=== PATIENT | male | born 1985 | race Caucasian/White ===

== ENCOUNTER 2016-11-14 10:05 | Emergency (ER) | payer OTHER ==
[2016-11-14 11:14] VITALS: RESP 18
[2016-11-14] MEDS ORDERED: SODIUM CHLORIDE 0.9% 1,000 ML IV STA (11:33)
[2016-11-14] MEDS ORDERED: METOCLOPRAMIDE 5 MG/ML 2 ML VIAL IVP STA (11:33)
[2016-11-14] MEDS ORDERED: KETOROLAC 30 MG/ML 1 ML VIAL IVP STA (11:33)
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
[2016-11-14 12:10] LABS: Basophils % (A) 0 %; CH 33.4; CHCM 34.8; Eosinophils # (A) 0.2 k/uL (0-0.7); Eosinophils % (A) 2 %; HCT 47.6 % (39.0-53.0); HDW 2.42; HGB 16.3 gm/dL (13.0-17.5); Luc # (Auto) 0.25; Luc % (Auto) 3; Lymphocytes # (A) 2.4 k/uL (1.0-4.8); Lymphocytes % (A) 27 %; MCH 32.9 pg (25.0-35.0); MCHC 34.2 g/dL (31.0-37.0); MCV 96.3 fL (80.0-100.0); Mean Platelet Volume 8.7; Monocytes # (A) 0.4 k/uL (0-1.0); Monocytes % (A) 5 %; Neutrophils # (A) 5.7 k/uL (1.3-7.7); Neutrophils % (A) 63 %; RBC 4.94 m/uL (4.30-5.90); RDW 11.9 % (11.5-15.5)
[2016-11-14 12:13] LABS: Appearance,Urine Clear (Clear); Bilirubin,Urine Negative (Negative); Glucose,Urine (UA) Negative (Negative); Ketones,Urine Trace (Negative); Leukocyte Esterase,Urine Trace (Negative); Mucus,Urine Rare /hpf; Nitrite,Urine Negative (Negative); Particle Count 3020; Protein,Urine Trace (Negative); RBC,Urine <1 /hpf (0-5); Specific Gravity,Urine 1.023 (1.001-1.035); Squamous Epithelial Cell,Urine <1 /hpf (0-4); UA Billing (MACRO vs. MICRO) MICRO; WBC,Urine 7 /hpf (0-5)
[2016-11-14 12:23] LABS: ALT 239 U/L (21-72); AST 119 U/L (17-59); Alkaline Phosphatase 99 U/L (38-126); Amylase 58 U/L (30-110); Anion Gap 15 mmol/L; Blood Urea Nitrogen 16 mg/dL (9-20); Calcium 10.3 mg/dL (8.4-10.2); Carbon Dioxide 26 mmol/L (22-30); Chloride 101 mmol/L (98-107); Glucose 106 mg/dL (74-99); Non-African American GFR(MDRD) >60 (>60 ml/min/1.73 sqM); Potassium 4.3 mmol/L (3.5-5.1); Sodium 142 mmol/L (137-145); Total Protein 8.5 g/dL (6.3-8.2)
--- NOTE | 2016-11-14 12:25 | XR ---
EXAMINATION TYPE: XR chest 2V DATE OF EXAM: 11/14/2016 12:17 PM COMPARISON: NONE HISTORY: Abdominal pain TECHNIQUE: Frontal and lateral views of the chest are obtained. FINDINGS: There is no focal air space opacity, pleural effusion, or pneumothorax seen. The cardiac silhouette size is within normal limits. Distal left clavicle shows a fracture with displacement. No apparent involvement of the acromioclavicular joint. Intact. IMPRESSION: No acute cardiopulmonary process. Distal left clavicular fracture.
--- NOTE | 2016-11-14 12:27 | XR ---
Abdomen HISTORY: Right-sided abdominal pain Frontal view of the abdomen submitted on 2 images and correlated to prior abdomen 07 November 2016 The lung bases are clear. There is a scoliotic curvature present. Air-fluid levels are present withou t bowel distention. No pneumoperitoneum. IMPRESSION: Findings could be due to enteritis or ileus. Follow-up as indicated.
[2016-11-14 12:41] LABS: INR 1.1 (<1.1); Partial Thromboplastin Time 25.3 sec (22.0-30.0); Prothrombin Time 10.7 sec (9.0-12.0)
[2016-11-14] MEDS ORDERED: FAMOTIDINE 20 MG/2 ML VIAL IV STA (13:01)
[2016-11-14] MEDS ORDERED: RX INFO: IV CONTRAST WAS GIVEN 1 EACH MISC MISCELLANE PRN (13:01)
[2016-11-14] MEDS ORDERED: methylPREDNISolone SOD SUCCI 125 MG/2 ML VIAL IV STA (13:01)
[2016-11-14] MEDS ORDERED: diphenhydrAMINE 50 MG/ML 1 ML VIAL IVP STA (13:01)
[2016-11-14] MEDS ORDERED: HYDROmorphone 1 MG/ML 1 ML SYRINGE IVP STA (14:06)
[2016-11-14 14:28] VITALS: BP 120/70; PULSE 76; TEMP 97.5
--- NOTE | 2016-11-14 14:45 | CT ---
EXAMINATION TYPE: CT abdomen pelvis w con DATE OF EXAM: 11/14/2016 2:24 PM COMPARISON: NONE HISTORY: 31-year-old male with left sided abdominal pain TECHNIQUE: Contiguous axial scanning of the abdomen and pelvis following administration of 100 ml Omn ipaque 300 IV contrast. Delayed images through the kidneys and coronal/sagittal reconstructions perf ormed. CT DLP: 1553 mGycm Automated exposure control for dose reduction was used. FINDINGS: Heart is normal size without pericardial effusion. Prominent dependent atelectasis along the posterio r lower lungs without pleural effusion. No focal liver lesion or biliary ductal dilatation. Portal venous system is patent. Gallbladder, adrenal glands, kidneys, spleen, and pancreas appear within normal limits. No dilated small bowel, free fluid, or free air. Scattered borderline to mildly enlarged left mesenteric lymph nodes measure up to 7 mm, probably reac tive/post inflammatory. Normal appendix. No pericolonic inflammatory change. There is underdistention of the bladder but circumferential bladder wall thickening. Rectum appears n ormal. No abnormal fluid collection in the pelvis or pelvic lymphadenopathy seen. Bones: No osseous destructive process. There is a subacute to chronic fracture of the left lateral si xth rib with both endosteal and periosteal callus. IMPRESSION: 1. MILD CIRCUMFERENTIAL BLADDER WALL THICKENING MAY RELATE TO UNDER DISTENTION OR CYSTITIS. CLINICALL Y CORRELATE. 2. SCATTERED BORDERLINE AND A FEW MILDLY ENLARGED MESENTERIC LYMPH NODES IN THE LEFT ABDOMEN PROBABLY REACTIVE/POST INFLAMMATORY.
== END 2016-11-14 15:27 | disposition home or self-care (01) ==
LOC: EC 10:05
DX: R10.9 Unspecified abdominal pain (principal); R11.10 Vomiting, unspecified; J45.909 Unspecified asthma, uncomplicated; G40.909 Epilepsy, unspecified, not intractable, without status epilepticus; F31.9 Bipolar disorder, unspecified; B19.20 Unspecified viral hepatitis C without hepatic coma; F17.200 Nicotine dependence, unspecified, uncomplicated; Z79.899 Other long term (current) drug therapy; Z88.0 Allergy status to penicillin; Z91.013 Allergy to seafood; Z91.018 Allergy to other foods
CPT/HCPCS: 96374; 96375 ×5; 96361 ×2; 99284; 36415; 80053; 82150; 83690; 85025; 85610; 85730; 81001; 71020; 74000; 74177; J1200; J2765; J2930; J1885; J1170; Q9967

== ENCOUNTER → 2016-12-06 | Day surgery (SDC) | payer OTHER ==
[~2016-12-06] MED LIST: LACTATED RINGERS 1,000 ML IV ONE; LIDOCAINE 1% 20 ML VIAL (10MG/ML) FOR IV START INTRADERMA ONE; LIDOCAINE 1% INJ 10MG/ML (20 ML MDV) ONE; PROPOFOL 10 MG/ML 20 ML VIAL IV ONE
[2016-12-06 09:44] VITALS: TEMP 98.5
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
--- NOTE | 2016-12-06 10:37 | P.OP ---
Date of Procedure: 12/06/16 Preoperative Diagnosis: Epigastric abdominal pain Nausea Vomiting Postoperative Diagnosis: Duodenitis Normal colon Procedure(s) Performed: EGD Colonoscopy Anesthesia: MAC Surgeon: Elias Salgado Pathology: other (Duodenum, antrum) Condition: stable Disposition: PACU Description of Procedure: PROCEDURE: The patient was placed on the endoscopy table in the lateral position. Digital rectal examination was performed which revealed no abnormalities. The prostate was symmetrical without nodules. Flexible colonoscope was then placed in the patient's anus and passed throughout the entire colon. The ileocecal valve was visualized. The cecum, ascending, transverse, descending and sigmoid colon were normal. The rectum was normal as well. There were no masses, polyps or diverticula noted in the entire colon. Next, the gastroscope placed oropharynx passed in the esophagus and into the stomach. Scope was placed through the pylorus. The first and second portion of duodenum appeared inflamed. A biopsies performed. Scope was then brought back the antrum this appeared mildly inflamed and a biopsies performed. The scope was then retroflexed and the remainder stomach appeared normal. The GE junction was at 40 cm. The distal esophagus was normal. The proximal esophagus was normal. Scope was withdrawn for patient.
[2016-12-06 10:51] VITALS: PULSE 69; RESP 18
[2016-12-06 11:03] VITALS: BP 115/70
--- NOTE | 2016-12-06 14:00 | NM ---
EXAMINATION TYPE: NM hepatobiliary w CCK DATE OF EXAM: 12/06/2016 1:43 PM COMPARISON: CT 14 November 2016 HISTORY: Epigastric pain, nausea and vomiting TECHNIQUE: After the intravenous administration of 5.46 mCi Tc 99m Mebrofenin hepatobiliary scintigra phy is performed. Immediate images post injection. FINDINGS: There is satisfactory initial accumulation of tracer by the liver. The gallbladder is visualized wit hin 12 minutes. The small bowel activity is noted within 8 minutes. At one hour CCK was administere d, patient was injected with 1.9 mcg of Kinevac, and gallbladder ejection fraction is calculated at 2 9 %, which is abnormal low. Therefore there is no scintigraphic evidence of cystic or common bile du ct obstruction to suggest acute cholecystitis or gallbladder dyskinesia. IMPRESSION: Abnormal low gallbladder ejection fraction
== END ==
LOC: ORWHC2ENDO 08:36
PROVIDERS: ATTEND Surgery
DX: K29.80 Duodenitis without bleeding (principal); K29.50 Unspecified chronic gastritis without bleeding; R93.2 Abnormal findings on diagnostic imaging of liver and biliary tract; J45.909 Unspecified asthma, uncomplicated; J44.9 Chronic obstructive pulmonary disease, unspecified; G40.909 Epilepsy, unspecified, not intractable, without status epilepticus; F90.9 Attention-deficit hyperactivity disorder, unspecified type; F41.9 Anxiety disorder, unspecified; F31.9 Bipolar disorder, unspecified; F41.0 Panic disorder [episodic paroxysmal anxiety]; F43.10 Post-traumatic stress disorder, unspecified; B19.20 Unspecified viral hepatitis C without hepatic coma; F17.200 Nicotine dependence, unspecified, uncomplicated; Z79.899 Other long term (current) drug therapy; Z88.0 Allergy status to penicillin; Z91.018 Allergy to other foods
CPT/HCPCS: 88305; 88342; 78227; 45378; 43239; A9537; J2805; J2001; J2704; 99153

== ENCOUNTER 2017-01-02 06:37 | Day surgery (SDC) | payer OTHER ==
[2017-01-01 08:42] VITALS: BMI 26.6
[~2017-01-02 06:37] MED LIST changes: +DEXAMETHASONE SOD PHOSPHATE 10 MG/ML 1 ML VIAL IV ONE; -LACTATED RINGERS 1,000 ML IV ONE; +LACTATED RINGERS 1,000 ML IV SCH; -LIDOCAINE 1% 20 ML VIAL (10MG/ML) FOR IV START INTRADERMA ONE; +LIDOCAINE 1% 20 ML VIAL (10MG/ML) FOR IV START INTRADERMA PRN; -LIDOCAINE 1% INJ 10MG/ML (20 ML MDV) ONE; +MIDAZOLAM 2 MG/2 ML VIAL IV PRN; +ONDANSETRON 4 MG/2 ML VIAL IVP ONE; -PROPOFOL 10 MG/ML 20 ML VIAL IV ONE; +SCOPOLAMINE 1.5MG/72HR PATCH TRANSDERM ONE; +ceFAZolin 2 GM in SODIUM CHLORIDE 0.9% 100 ML IVPB ONE
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
[2017-01-02] MEDS ORDERED: NEOSTIGMINE 1 MG/ML 10 ML VIAL ONE (07:57)
[2017-01-02] MEDS ORDERED: fentaNYL (PF) 50 MCG/ML 2 ML AMP ONE (07:57)
[2017-01-02] MEDS ORDERED: HYDROmorphone (PF) 1 MG/ML ONE (07:57)
[2017-01-02] MEDS ORDERED: PROPOFOL 10 MG/ML 20 ML VIAL IV ONE (07:57)
[2017-01-02] MEDS ORDERED: GLYCOPYRROLATE 0.2 MG/ML 2 ML VIAL ONE (07:57)
[2017-01-02] MEDS ORDERED: SUCCINYLCHOLINE CHLORIDE 100 MG/5 ML SYR IV ONE (07:57)
[2017-01-02] MEDS ORDERED: ROCURONIUM BROMIDE 10 MG/ML 10 ML VIAL IV ONE (07:57)
[2017-01-02] MEDS ORDERED: LIDOCAINE 1% INJ 10MG/ML (20 ML MDV) ONE (07:57)
[2017-01-02] MEDS ORDERED: BUPIVACAIN-EPI 0.25%-1:200,000 30 ML VIAL SQ ONE ×2 (08:20→08:23)
--- NOTE | 2017-01-02 08:44 | P.OP ---
Date of Procedure: 01/02/17 Preoperative Diagnosis: Cholecystitis Postoperative Diagnosis: Cholecystitis Procedure(s) Performed: Laparoscopic cholecystectomy Anesthesia: MICAH Surgeon: Elias Salgado Estimated Blood Loss (ml): 5 Pathology: other (Gallbladder) Condition: stable Disposition: PACU Description of Procedure: The patient was placed on the operating table. The patient received a general endotracheal tube anesthesia. The patients abdomen was prepped and draped in the usual sterile fashion. Through an infraumbilical stab incision, the fascia of the anterior abdominal wall was grasped with a pair of Kochers and then the Veress needle was placed in the peritoneal cavity. Position of the Veress needle was confirmed with positive drop test. The abdomen was then insufflated. After adequate insufflation, the 10 mm trocar was placed in the peritoneal cavity. Following this the laparoscope was placed in the peritoneal cavity. The patient was placed in the head-up, right side up position and then a 5 mm trocar was placed in the right lateral and right subcostal position under direct visualization. A 8 mm trocar was placed in the epigastric position. The gallbladder was grasped in the fundus and infundibulum. Traction on the gallbladder was placed in the lateral and the cephalad positions. The triangle of Calot was visualized.. The cystic duct was bluntly dissected until the union of the cystic duct and common bile duct was seen. The cystic duct was then divided and sealed with the Harmonic scissors. A PDS Endoloop was then placed throughout the cystic duct stump. The cystic artery divided and sealed with the Harmonic scissors. The gallbladder was then removed from the liver bed using Harmonic scissors. The gallbladder was then extracted through the epigastric port site. Operative field was checked for any bleeding spots and Harmonic scissors was used to coagulate the liver bed. The abdomen was irrigated. The trocars were removed. The skin was closed using interrupted 3-0 Vicryl suture. Dermabond dressing were applied. The patient tolerated the procedure well.
[2017-01-02 08:56] VITALS: TEMP 99.2
[2017-01-02] MEDS: HYDROmorphone 1 MG/ML 1 ML SYRINGE IVP PRN ×2 (09:20→09:40)
[2017-01-02 10:16] VITALS: RESP 18
[2017-01-02 10:34] VITALS: BP 121/67; PULSE 79
== END 2017-01-02 10:43 | disposition home or self-care (01) ==
LOC: OR 06:37
PROVIDERS: ATTEND Surgery
DX: K81.1 Chronic cholecystitis (principal); I10 Essential (primary) hypertension; J45.909 Unspecified asthma, uncomplicated; I34.1 Nonrheumatic mitral (valve) prolapse; G40.909 Epilepsy, unspecified, not intractable, without status epilepticus; F90.9 Attention-deficit hyperactivity disorder, unspecified type; B19.20 Unspecified viral hepatitis C without hepatic coma; F17.200 Nicotine dependence, unspecified, uncomplicated; Z88.0 Allergy status to penicillin; Z79.51 Long term (current) use of inhaled steroids; Z79.899 Other long term (current) drug therapy
CPT/HCPCS: 47562; 88304; J1100; J2710; J0690; J2405; J2001; J3010; J1170; J0330; J2704

== ENCOUNTER 2017-06-04 10:17 | Emergency (ER) | payer OTHER ==
[2017-06-04] MEDS ORDERED: ONDANSETRON 4 MG/2 ML VIAL IVP STA (10:39)
[2017-06-04] MEDS ORDERED: SODIUM CHLORIDE 0.9% 1,000 ML IV STA (10:39)
[2017-06-04] MEDS ORDERED: LORazepam 2 MG/ML SYRINGE IV STA (10:40)
[2017-06-04 10:52] LABS: Basophils % (A) 0 %; CH 33.5; CHCM 35.5; Eosinophils # (A) 0.2 k/uL (0-0.7); Eosinophils % (A) 1 %; HCT 45.4 % (39.0-53.0); HDW 2.48; HGB 15.8 gm/dL (13.0-17.5); Large Platelets Flag Slight; Luc % (Auto) 2; Lymphocytes # (A) 2.5 k/uL (1.0-4.8); Lymphocytes % (A) 22 %; MCH 32.9 pg (25.0-35.0); MCHC 34.7 g/dL (31.0-37.0); MCV 94.7 fL (80.0-100.0); Mean Platelet Volume 11.8; Monocytes # (A) 0.5 k/uL (0-1.0); Monocytes % (A) 4 %; Neutrophils # (A) 8.3 k/uL (1.3-7.7); Neutrophils % (A) 71 %; RBC 4.79 m/uL (4.30-5.90); RDW 12.8 % (11.5-15.5); WBC 11.6 k/uL (3.8-10.6); WBC (Perox) 11.31
[2017-06-04 11:08] LABS: ALT 123 U/L (21-72); AST 65 U/L (17-59); Alkaline Phosphatase 98 U/L (38-126); Amylase 42 U/L (30-110); Anion Gap 16 mmol/L; Blood Urea Nitrogen 16 mg/dL (9-20); Calcium 9.9 mg/dL (8.4-10.2); Carbon Dioxide 18 mmol/L (22-30); Chloride 110 mmol/L (98-107); Glucose 117 mg/dL (74-99); INR 1.1 (<1.2); Non-African American GFR(MDRD) >60 (>60 ml/min/1.73 sqM); Partial Thromboplastin Time 24.3 sec (22.0-30.0); Potassium 3.7 mmol/L (3.5-5.1); Sodium 144 mmol/L (137-145); Total Protein 8.3 g/dL (6.3-8.2)
--- NOTE | 2017-06-04 11:15 | XR ---
EXAMINATION TYPE: XR KUB , 2 VIEWS DATE OF EXAM ORDERED: 06/04/2017 HISTORY: abdominal pain. COMPARISON: Previous study dated 11/14/2016. FINDINGS: The abdominal gas pattern is normal. There is no evidence of obstruction or free air. Ther e is a phlebolith in the left hemipelvis. IMPRESSION: NO ACUTE INTRA-ABDOMINAL ABNORMALITY.
--- NOTE | 2017-06-04 12:05 | ED ---
Abdominal Pain HPI - General Chief Complaint: Abdominal Pain Stated Complaint: Abd Pain Time Seen by Provider: 06/04/17 10:30 Source: patient, EMS, RN notes reviewed Mode of arrival: EMS Limitations: no limitations - History of Present Illness Initial Comments: This a 31-year-old male presents emergency Department chief complaint right upper quadrant abdominal pain. Patient's had several ER visits for some similar symptoms. Patient states she is currently scheduled to see [facility] for hepatocellular cancer. Patient states she was diagnosed recently there after a biopsy. Patient has known hep C. Patient states he is normally on pain medication so he does not have any current pain medications. Patient denies any fever, chills. Patient has had nausea vomiting last few days. Denies any diarrhea or constipation. Denies dysuria hematuria. - Related Data Home Medications Medication Instructions Recorded Confirmed Gabapentin [Neurontin] 600 mg PO TID 11/07/16 06/04/17 Lisinopril [Zestril] 2.5 mg PO QAM 11/07/16 06/04/17 traZODone HCL 100 mg PO HS PRN 11/07/16 06/04/17 [place] Carbonate 600 mg PO HS 01/01/17 06/04/17 Albuterol Inhaler [Ventolin Hfa 1 - 2 puff INHALATION RT-Q6H PRN 06/04/17 Inhaler] Baclofen [Lioresal] 10 mg PO BID 06/04/17 06/04/17 Diphenox-Atrop 2.5-0.025 mg 1 tab PO BID PRN 06/04/17 06/04/17 [Lomotil] Omeprazole 20 mg PO DAILY 06/04/17 06/04/17 Sucralfate [Carafate] 1 gm PO ACHS 06/04/17 06/04/17 lamoTRIgine [LaMICtal] 150 mg PO BID 06/04/17 06/04/17 risperiDONE 3 mg PO HS 06/04/17 06/04/17 Previous Rx's Medication Instructions Recorded Hydrocodone/Acetaminophen [[place] 1 tab PO Q6HR PRN #15 tab 06/04/17 5-325] Allergies Allergy/AdvReac Type Severity Reaction Status Date / Time Penicillins Allergy Rash/Hives Verified 06/04/17 11:00 shellfish derived [Shellfish] Allergy throat Verified 06/04/17 11:00 Swelling/rash tomato Allergy Rash/Hives Verified 06/04/17 11:00 Fish Containing Products AdvReac Nausea Verified 06/04/17 11:00 [Fish] Tuna AdvReac Nausea Uncoded 01/02/17 06:53 Review of Systems ROS Statement: Those systems with pertinent positive or pertinent negative responses have been documented in the HPI. ROS Other: All systems not noted in ROS Statement are negative. Past Medical History Past Medical History: Asthma, Hypertension, Mitral Valve Prolapse (MVP), Seizure Disorder Additional Past Medical History / Comment(s): Hepatitis C x 2 years no treatment. Seizure disorder, states last seizure was one year ago. MVP dx as a child. States her PCP has taken her off the HTN meds. Liver cancer History of Any Multi-Drug Resistant Organisms: None Reported Past Surgical History: Cholecystectomy, Hernia Repair Additional Past Surgical History / Comment(s): Right inguinal hernia repair 2. Self-inflicted chest wound requiring chest tube and sutures. Past Anesthesia/Blood Transfusion Reactions: No Reported Reaction Past Psychological History: ADD/ADHD, Anxiety, Bipolar, Depression, Panic Disorder, PTSD Smoking Status: Current every day smoker Past Alcohol Use History: None Reported Past Drug Use History: Cocaine, Heroin, Marijuana - Past Family History Father Additional Family Medical History / Comment(s): Father is alive at age 60 with history of bipolar disorder, schizophrenia, opiate abuse, pedophile with time in long term. Mother Additional Family Medical History / Comment(s): Mother is alive at age 52 with no major medical problems. Brother(s) Additional Family Medical History / Comment(s): Patient has 2 brothers and they have no contact with him. Sister(s) Additional Family Medical History / Comment(s): He has one sister that has history of opiate abuse and bipolar. Son(s) Additional Family Medical History / Comment(s): Patient has 2 sons and one has history of pituitary cancer, ADHD and bipolar, second son has ADD, one daughter with no major medical problems. General Exam Limitations: no limitations General appearance: alert, in no apparent distress ENT exam: Present: normal exam, normal oropharynx, mucous membranes moist Neck exam: Present: normal inspection, full ROM. Absent: tenderness, meningismus, lymphadenopathy Respiratory exam: Present: normal lung sounds bilaterally. Absent: respiratory distress, wheezes, rales, rhonchi, stridor Cardiovascular Exam: Present: regular rate, normal rhythm, normal heart sounds. Absent: systolic murmur, diastolic murmur, rubs, gallop, clicks GI/Abdominal exam: Present: soft, tenderness (Moderate right upper quadrant tenderness), normal bowel sounds. Absent: distended, guarding, rebound, rigid Back exam: Absent: CVA tenderness (R), CVA tenderness (L) Neurological exam: Present: alert, oriented X3, CN II-XII intact Skin exam: Present: warm, dry, intact, normal color. Absent: rash Course Vital Signs 06/04/17 10:22 Temperature 98.4 F Pulse Rate 100 Respiratory 20 Rate Blood Pressure 115/77 O2 Sat by Pulse 95 Oximetry Medical Decision Making - Medical Decision Making 31-year-old male presents emergency Department chief complaint right upper quadrant abdominal pain. Patient's lab work does not show any acute changes. Patient does have mild liver function that her elevated though this is normal for him. Patient's EKG does not show any abnormality's. Patient be given pain medication and discharge. - Lab Data Result diagrams: 06/04/17 10:15 06/04/17 10:15 Lab Results 06/04/17 06/04/17 06/04/17 Range/Units 10:15 10:15 10:15 WBC 11.6 H (3.8-10.6) k/uL RBC 4.79 (4.30-5.90) m/uL Hgb 15.8 (13.0-17.5) gm/dL Hct 45.4 (39.0-53.0) % MCV 94.7 (80.0-100.0) fL MCH 32.9 (25.0-35.0) pg MCHC 34.7 (31.0-37.0) g/dL RDW 12.8 (11.5-15.5) % Plt Count 138 L (150-450) k/uL Neutrophils % 71 % Lymphocytes % 22 % Monocytes % 4 % Eosinophils % 1 % Basophils % 0 % Neutrophils # 8.3 H (1.3-7.7) k/uL Lymphocytes # 2.5 (1.0-4.8) k/uL Monocytes # 0.5 (0-1.0) k/uL Eosinophils # 0.2 (0-0.7) k/uL Basophils # 0.0 (0-0.2) k/uL PT 11.0 (9.0-12.0) sec INR 1.1 (<1.2) APTT 24.3 (22.0-30.0) sec Sodium 144 (137-145) mmol/L Potassium 3.7 (3.5-5.1) mmol/L Chloride 110 H (98-107) mmol/L Carbon Dioxide 18 L (22-30) mmol/L Anion Gap 16 mmol/L BUN 16 (9-20) mg/dL Creatinine 1.03 (0.66-1.25) mg/dL Est GFR (MDRD) Af Amer >60 (>60 ml/min/1.73 sqM) Est GFR (MDRD) Non-Af >60 (>60 ml/min/1.73 sqM) Glucose 117 H (74-99) mg/dL Calcium 9.9 (8.4-10.2) mg/dL Total Bilirubin 1.0 (0.2-1.3) mg/dL AST 65 H (17-59) U/L ALT 123 H (21-72) U/L Alkaline Phosphatase 98 (38-126) U/L Total Protein 8.3 H (6.3-8.2) g/dL Albumin 4.9 (3.5-5.0) g/dL Amylase 42 (30-110) U/L Lipase 70 (23-300) U/L 06/04/17 12:05 EKG performed at 10:37 sinus tachycardia with a rate of 104 UT 140 QS duration 92 QT/QTC 340/447 Disposition Clinical Impression: Chronic abdominal pain, Hepatic disease Disposition: HOME SELF-CARE Condition: Stable Instructions: Abdominal Pain (ED) Additional Instructions: Please return to the Emergency Department if symptoms worsen or any other concerns. Prescriptions: Hydrocodone/Acetaminophen [[place] 5-325] 1 tab PO Q6HR PRN #15 tab PRN Reason: Pain Referrals: Oliva Dubose MD [Primary Care Provider] - 1-2 days Time of Disposition: 12:05
[2017-06-04] MEDS ORDERED: MORPHINE SULFATE 2 MG/ML SYRINGE IVP ONE (12:08)
[2017-06-04 12:34] VITALS: BP 122/76; PULSE 74; RESP 18; TEMP 98.7
== END 2017-06-04 12:39 | disposition home or self-care (01) ==
LOC: EC 10:17
DX: K76.9 Liver disease, unspecified (principal); R11.2 Nausea with vomiting, unspecified; R00.0 Tachycardia, unspecified; I10 Essential (primary) hypertension; F31.9 Bipolar disorder, unspecified; F17.200 Nicotine dependence, unspecified, uncomplicated; Z86.19 Personal history of other infectious and parasitic diseases; Z90.49 Acquired absence of other specified parts of digestive tract; Z88.0 Allergy status to penicillin; Z91.013 Allergy to seafood; Z91.018 Allergy to other foods; Z79.1 Long term (current) use of non-steroidal anti-inflammatories (NSAID); Z79.899 Other long term (current) drug therapy
CPT/HCPCS: 99284; 96374; 96375 ×2; 96361; 36415; 80053; 82150; 83690; 85025; 85610; 85730; 74000; J2060; J2405; J2270

== ENCOUNTER 2017-06-06 12:09 | Emergency (ER) | payer OTHER ==
[2017-06-06 12:20] VITALS: TEMP 100.3
[2017-06-06] MEDS ORDERED: RX INFO: IV CONTRAST WAS GIVEN 1 EACH MISC MISCELLANE PRN (12:32)
[2017-06-06] MEDS ORDERED: SODIUM CHLORIDE 0.9% 1,000 ML IV STA (12:32)
[2017-06-06] MEDS ORDERED: HYDROmorphone 1 MG/ML 1 ML SYRINGE IVP STA ×2 (12:32→14:23)
[2017-06-06] MEDS ORDERED: ONDANSETRON 4 MG/2 ML VIAL IVP STA (12:32)
[2017-06-06] MEDS ORDERED: FAMOTIDINE 20 MG/2 ML VIAL IV STA (12:35)
[2017-06-06] MEDS ORDERED: methylPREDNISolone SOD SUCCI 125 MG/2 ML VIAL IV STA (12:35)
[2017-06-06] MEDS ORDERED: diphenhydrAMINE 50 MG/ML 1 ML VIAL IVP STA (12:35)
--- NOTE | 2017-06-06 12:38 | ED ---
General Adult HPI - General Chief complaint: Abdominal Pain Stated complaint: Abd pain Time Seen by Provider: 06/06/17 12:22 Source: patient, RN notes reviewed, old records reviewed Mode of arrival: ambulatory Limitations: no limitations - History of Present Illness Initial comments: Patient 31-year-old male significant past medical history for hepatocellular carcinoma, hepatitis C, who presents emergency room today with a chief complaint of increased right-sided abdominal pain. Patient does admit that he was recent CT of the emergency room. He states he was discharged on pain medication of [place]. States he took one tablet at home. States did not help so he did not take anymore. He states still expressing pain in the right side of the abdomen. Patient states that he has had increased symptoms of nausea vomiting haven't been having down. States it feels like he may be dehydrated. Patient denies any other complaints or associated symptoms currently at this time. Patient denies any recent fever, chills, shortness of breath, chest pain, numbness or tingling, dysuria or hematuria, constipation or diarrhea, headaches or visual changes, or any other complaints. - Related Data Home Medications Medication Instructions Recorded Confirmed Gabapentin [Neurontin] 600 mg PO TID 11/07/16 06/04/17 Lisinopril [Zestril] 2.5 mg PO QAM 11/07/16 06/04/17 traZODone HCL 100 mg PO HS PRN 11/07/16 06/04/17 [place] Carbonate 600 mg PO HS 01/01/17 06/04/17 Albuterol Inhaler [Ventolin Hfa 1 - 2 puff INHALATION RT-Q6H PRN 06/04/17 Inhaler] Baclofen [Lioresal] 10 mg PO BID 06/04/17 06/04/17 Diphenox-Atrop 2.5-0.025 mg 1 tab PO BID PRN 06/04/17 06/04/17 [Lomotil] Omeprazole 20 mg PO DAILY 06/04/17 06/04/17 Sucralfate [Carafate] 1 gm PO ACHS 06/04/17 06/04/17 lamoTRIgine [LaMICtal] 150 mg PO BID 06/04/17 06/04/17 risperiDONE 3 mg PO HS 06/04/17 06/04/17 Previous Rx's Medication Instructions Recorded Hydrocodone/Acetaminophen [[place] 1 tab PO Q6HR PRN #15 tab 06/04/17 5325] Allergies Allergy/AdvReac Type Severity Reaction Status Date / Time Penicillins Allergy Rash/Hives Verified 06/04/17 11:00 shellfish derived [Shellfish] Allergy throat Verified 06/04/17 11:00 Swelling/rash tomato Allergy Rash/Hives Verified 06/04/17 11:00 Fish Containing Products AdvReac Nausea Verified 06/04/17 11:00 [Fish] Tuna AdvReac Nausea Uncoded 01/02/17 06:53 Review of Systems ROS Statement: Those systems with pertinent positive or pertinent negative responses have been documented in the HPI. ROS Other: All systems not noted in ROS Statement are negative. Past Medical History Past Medical History: Asthma, Hypertension, Mitral Valve Prolapse (MVP), Seizure Disorder Additional Past Medical History / Comment(s): Hepatitis C x 2 years no treatment. Seizure disorder, states last seizure was one year ago. MVP dx as a child. States her PCP has taken her off the HTN meds. Liver cancer History of Any Multi-Drug Resistant Organisms: None Reported Past Surgical History: Cholecystectomy, Hernia Repair Additional Past Surgical History / Comment(s): Right inguinal hernia repair 2. Self-inflicted chest wound requiring chest tube and sutures. Past Anesthesia/Blood Transfusion Reactions: No Reported Reaction Past Psychological History: ADD/ADHD, Anxiety, Bipolar, Depression, Panic Disorder, PTSD Smoking Status: Current every day smoker Past Alcohol Use History: None Reported Past Drug Use History: Cocaine, Heroin, Marijuana - Past Family History Father Additional Family Medical History / Comment(s): Father is alive at age 60 with history of bipolar disorder, schizophrenia, opiate abuse, pedophile with time in penitentiary. Mother Additional Family Medical History / Comment(s): Mother is alive at age 52 with no major medical problems. Brother(s) Additional Family Medical History / Comment(s): Patient has 2 brothers and they have no contact with him. Sister(s) Additional Family Medical History / Comment(s): He has one sister that has history of opiate abuse and bipolar. Son(s) Additional Family Medical History / Comment(s): Patient has 2 sons and one has history of pituitary cancer, ADHD and bipolar, second son has ADD, one daughter with no major medical problems. General Exam - General Exam Comments Initial Comments: General: The patient is awake and alert, in no distress, and does not appear acutely ill. Eye: Pupils are equal, round and reactive to light, extra-ocular movements are intact. No nystagmus. There is normal conjunctiva bilaterally. No signs of icterus. Ears, nose, mouth and throat: There are moist mucous membranes and no oral lesions. Neck: The neck is supple, there is no tenderness or JVD. Cardiovascular: There is a regular rate and rhythm. No murmur, rub or gallop is appreciated. Respiratory: Lungs are clear to auscultation, respirations are non-labored, breath sounds are equal. No wheezes, stridor, rales, or rhonchi. Gastrointestinal: Normal appearance of abdomen. Normal bowel sounds. Abdomen soft on palpation. Patient does have increased tenderness to the right side. No rebound tenderness. No Guarding. Musculoskeletal: Normal ROM, no tenderness. Strength 5/5. Sensation intact. Pulses equal bilaterally 2+. Neurological: A&O x 3. CN II-XII intact, There are no obvious motor or sensory deficits. Coordination appears grossly intact. Speech is normal. Skin: Skin is warm and dry and no rashes or lesions are noted. Psychiatric: Cooperative, appropriate mood & affect, normal judgment. Limitations: no limitations Course Vital Signs 06/06/17 12:16 Temperature 100.3 F H Pulse Rate 77 Respiratory 20 Rate Blood Pressure 119/69 O2 Sat by Pulse 96 Oximetry Medical Decision Making - Medical Decision Making CT reviewed and shows no acute inflammatory processes identified abdomen without to explain for the patient's symptoms. There is a couple nonspecific prominent air-fluid small bowel loops in the left abdomen. Could represent a mild regional ileus. patient's results were discussed with the patient. He states that he would like to be discharged home. He states he would like to file complaint because he has not received any pain meds for his pain that he's been expressing here in the emergency room. States he has not been taking care of. Patient has been verbally abusive to the nursing staff. I have been in the room multiple times with patient speaking with him, tried to explain his findings. Patient continues to be absent. Patient advised that he is okay to be discharged home and follow-up. - Lab Data Result diagrams: 06/06/17 13:00 07/28/17 13:00 Lab Results 06/06/17 06/06/17 06/06/17 Range/Units 13:00 13:00 13:00 WBC 7.6 (3.8-10.6) k/uL RBC 4.12 L (4.30-5.90) m/uL Hgb 13.8 (13.0-17.5) gm/dL Hct 38.9 L (39.0-53.0) % MCV 94.4 (80.0-100.0) fL MCH 33.3 (25.0-35.0) pg MCHC 35.3 (31.0-37.0) g/dL RDW 11.9 (11.5-15.5) % Plt Count 107 L (150-450) k/uL Neutrophils % 57 % Lymphocytes % 34 % Monocytes % 4 % Eosinophils % 3 % Basophils % 0 % Neutrophils # 4.3 (1.3-7.7) k/uL Lymphocytes # 2.6 (1.0-4.8) k/uL Monocytes # 0.3 (0-1.0) k/uL Eosinophils # 0.2 (0-0.7) k/uL Basophils # 0.0 (0-0.2) k/uL Sodium 143 (137-145) mmol/L Potassium 3.8 (3.5-5.1) mmol/L Chloride 111 H (98-107) mmol/L Carbon Dioxide 23 (22-30) mmol/L Anion Gap 9 mmol/L BUN 13 (9-20) mg/dL Creatinine 0.83 (0.66-1.25) mg/dL Est GFR (MDRD) Af Amer >60 (>60 ml/min/1.73 sqM) Est GFR (MDRD) Non-Af >60 (>60 ml/min/1.73 sqM) Glucose 98 (74-99) mg/dL Plasma Lactic Acid Rodger 0.8 (0.7-2.0) mmol/L Calcium 9.7 (8.4-10.2) mg/dL Total Bilirubin 0.4 (0.2-1.3) mg/dL AST 62 H (17-59) U/L ALT 107 H (21-72) U/L Alkaline Phosphatase 74 (38-126) U/L Total Protein 7.1 (6.3-8.2) g/dL Albumin 4.2 (3.5-5.0) g/dL Amylase 39 (30-110) U/L Lipase 81 (23-300) U/L Urine Color Urine Appearance (Clear) Urine pH (5.0-8.0) Ur Specific Lee (1.001-1.035) Urine Protein (Negative) Urine Glucose (UA) (Negative) Urine Ketones (Negative) Urine Blood (Negative) Urine Nitrite (Negative) Urine Bilirubin (Negative) Urine Urobilinogen (<2.0) mg/dL Ur Leukocyte Esterase (Negative) 06/06/17 Range/Units 14:00 WBC (3.8-10.6) k/uL RBC (4.30-5.90) m/uL Hgb (13.0-17.5) gm/dL Hct (39.0-53.0) % MCV (80.0-100.0) fL MCH (25.0-35.0) pg MCHC (31.0-37.0) g/dL RDW (11.5-15.5) % Plt Count (150-450) k/uL Neutrophils % % Lymphocytes % % Monocytes % % Eosinophils % % Basophils % % Neutrophils # (1.3-7.7) k/uL Lymphocytes # (1.0-4.8) k/uL Monocytes # (0-1.0) k/uL Eosinophils # (0-0.7) k/uL Basophils # (0-0.2) k/uL Sodium (137-145) mmol/L Potassium (3.5-5.1) mmol/L Chloride (98-107) mmol/L Carbon Dioxide (22-30) mmol/L Anion Gap mmol/L BUN (9-20) mg/dL Creatinine (0.66-1.25) mg/dL Est GFR (MDRD) Af Amer (>60 ml/min/1.73 sqM) Est GFR (MDRD) Non-Af (>60 ml/min/1.73 sqM) Glucose (74-99) mg/dL Plasma Lactic Acid Rodger (0.7-2.0) mmol/L Calcium (8.4-10.2) mg/dL Total Bilirubin (0.2-1.3) mg/dL AST (17-59) U/L ALT (21-72) U/L Alkaline Phosphatase (38-126) U/L Total Protein (6.3-8.2) g/dL Albumin (3.5-5.0) g/dL Amylase (30-110) U/L Lipase (23-300) U/L Urine Color Yellow Urine Appearance Clear (Clear) Urine pH 6.0 (5.0-8.0) Ur Specific Lee 1.026 (1.001-1.035) Urine Protein Trace H (Negative) Urine Glucose (UA) Negative (Negative) Urine Ketones Negative (Negative) Urine Blood Negative (Negative) Urine Nitrite Negative (Negative) Urine Bilirubin Negative (Negative) Urine Urobilinogen 2.0 (<2.0) mg/dL Ur Leukocyte Esterase Negative (Negative) Disposition Clinical Impression: Abdominal pain Disposition: HOME SELF-CARE Condition: Good Instructions: Abdominal Pain (ED) Additional Instructions: Please follow-up with family doctor in the next 2 days of symptoms have not improved. Please return to emergency room if the symptoms increase or worsen or for any other concerns. Referrals: Oliva Dubose MD [Primary Care Provider] - 1-2 days Time of Disposition: 15:21
[2017-06-06 13:10] LABS: Basophils % (A) 0 %; CH 33.2; CHCM 35.3; Eosinophils # (A) 0.2 k/uL (0-0.7); Eosinophils % (A) 3 %; HCT 38.9 % (39.0-53.0); HGB 13.8 gm/dL (13.0-17.5); Large Platelets Flag Slight; Luc # (Auto) 0.19; Luc % (Auto) 3; Lymphocytes # (A) 2.6 k/uL (1.0-4.8); Lymphocytes % (A) 34 %; MCH 33.3 pg (25.0-35.0); MCHC 35.3 g/dL (31.0-37.0); MCV 94.4 fL (80.0-100.0); Monocytes # (A) 0.3 k/uL (0-1.0); Monocytes % (A) 4 %; Neutrophils # (A) 4.3 k/uL (1.3-7.7); Neutrophils % (A) 57 %; RBC 4.12 m/uL (4.30-5.90); RDW 11.9 % (11.5-15.5); WBC 7.6 k/uL (3.8-10.6); WBC (Perox) 7.94
[2017-06-06 13:18] LABS: ALT 107 U/L (21-72); AST 62 U/L (17-59); Alkaline Phosphatase 74 U/L (38-126); Amylase 39 U/L (30-110); Anion Gap 9 mmol/L; Blood Urea Nitrogen 13 mg/dL (9-20); Calcium 9.7 mg/dL (8.4-10.2); Carbon Dioxide 23 mmol/L (22-30); Chloride 111 mmol/L (98-107); Glucose 98 mg/dL (74-99); Non-African American GFR(MDRD) >60 (>60 ml/min/1.73 sqM); Potassium 3.8 mmol/L (3.5-5.1); Sodium 143 mmol/L (137-145); Total Bilirubin 0.4 mg/dL (0.2-1.3); Total Protein 7.1 g/dL (6.3-8.2)
[2017-06-06] MEDS ORDERED: LORazepam 2 MG/ML SYRINGE IV STA (14:00)
[2017-06-06 14:22] LABS: Appearance,Urine Clear (Clear); Bilirubin,Urine Negative (Negative); Glucose,Urine (UA) Negative (Negative); Ketones,Urine Negative (Negative); Leukocyte Esterase,Urine Negative (Negative); Nitrite,Urine Negative (Negative); Protein,Urine Trace (Negative); Specific Gravity,Urine 1.026 (1.001-1.035); UA Billing (MACRO vs. MICRO) CHEM
--- NOTE | 2017-06-06 15:08 | CT ---
EXAMINATION TYPE: CT abdomen pelvis w con DATE OF EXAM: 06/06/2017 COMPARISON: NONE HISTORY: 31-year-old male with right sided abdominal pain. TECHNIQUE: Contiguous axial scanning of the abdomen and pelvis following administration of 100 ml Omn ipaque 300 IV contrast. Delayed images through the kidneys and coronal/sagittal reconstructions perf ormed. CT DLP: 967.70 mGycm Automated exposure control for dose reduction was used. FINDINGS: Heart is normal size without pericardial effusion. Prominent dependent atelectasis again noted referral agent iorly in the lower lungs. Focal fat along the anterior falciform ligament. Gallbladder not seen, either surgically absent in th e interval or collapsed. Portal venous system is patent. No biliary ductal dilatation. Adrenal glands, kidneys, spleen, and pancreas appear within normal limits. No dilated small bowel, free fluid, or free air. Normal appendix. No significant stool burden or pericolonic inflammatory change. Some nonspecific pr ominent air-filled small bowel loops in the left abdomen measure up to 3.6 cm. No transition point to suggest bowel obstruction. No mesenteric or retroperitoneal lymphadenopathy. Motion at the pelvis. Bladder is underdistended. No abnormal fluid collection in the pelvis. Bones: No osseous destructive process. IMPRESSION: 1. NO ACUTE INFLAMMATORY PROCESS IDENTIFIED IN THE ABDOMEN OR PELVIS TO EXPLAIN THE PATIENT'S SYMPTOM S. 2. A COUPLE NONSPECIFIC PROMINENT AIR-FILLED SMALL BOWEL LOOPS IN THE LEFT ABDOMEN. THIS COULD BE TRA NSIENT OR COULD REPRESENT A MILD REGIONAL ILEUS.
[2017-06-06 15:26] VITALS: BP 145/91; PULSE 62; RESP 18
== END 2017-06-06 15:39 | disposition home or self-care (01) ==
LOC: EC 12:09
DX: R10.9 Unspecified abdominal pain (principal); R11.2 Nausea with vomiting, unspecified; I10 Essential (primary) hypertension; G40.909 Epilepsy, unspecified, not intractable, without status epilepticus; F31.9 Bipolar disorder, unspecified; F41.9 Anxiety disorder, unspecified; F17.200 Nicotine dependence, unspecified, uncomplicated; Z79.899 Other long term (current) drug therapy; Z88.0 Allergy status to penicillin; Z91.013 Allergy to seafood; Z91.018 Allergy to other foods; Z90.49 Acquired absence of other specified parts of digestive tract
CPT/HCPCS: 99285; 96374; 96375 ×5; 96376; 96361 ×3; 36415; 80053; 82150; 83605; 83690; 85025; 81003; 74177; J2060; J1200; J2930; J2405; J1170; Q9967

== ENCOUNTER → 2017-11-20 | Outpatient (CLI) | payer OTHER ==
[2017-11-20 13:43] LABS: Basophils % (A) 0 %; Eosinophils # (A) 0.3 k/uL (0-0.7); Eosinophils % (A) 3 %; HCT 45.5 % (39.0-53.0); Lymphocytes % (A) 32 %; MCH 31.7 pg (25.0-35.0); MCHC 32.9 g/dL (31.0-37.0); MCV 96.5 fL (80.0-100.0); Mean Platelet Volume 9.8; Monocytes # (A) 0.4 k/uL (0-1.0); Monocytes % (A) 5 %; Neutrophils # (A) 5.5 k/uL (1.3-7.7); Neutrophils % (A) 59 %; Platelet Count 143 k/uL (150-450); RBC 4.72 m/uL (4.30-5.90); WBC 9.4 k/uL (3.8-10.6)
[2017-11-20 14:01] LABS: Albumin 4.4 g/dL (3.5-5.0); Bilirubin, Delta 0.3 mg/dL (0.0-0.2); Bilirubin,Unconjugated 0.5 mg/dL (0.0-1.1); Total Bilirubin 0.8 mg/dL (0.2-1.3); Total Protein 7.7 g/dL (6.3-8.2)
[2017-11-21 15:20] LABS: Hepatits C Virus RNA DETECTED (Not detected); LOG HCV IU/mL 6.31 (<1.08)
== END | disposition home or self-care (01) ==
LOC: LABWHC1 13:08
PROVIDERS: ATTEND Physician Assistant
DX: B18.2 Chronic viral hepatitis C (principal)
CPT/HCPCS: 36415; 80076; 85025; 87522

== ENCOUNTER → 2018-04-09 | Outpatient (CLI) | payer SELFPAY ==
[2018-04-09 10:46] LABS: Basophils % (A) 0 %; Eosinophils # (A) 0.2 k/uL (0-0.7); Eosinophils % (A) 1 %; HCT 44.4 % (39.0-53.0); HGB 15.2 gm/dL (13.0-17.5); Lymphocytes # (A) 2.4 k/uL (1.0-4.8); Lymphocytes % (A) 17 %; MCH 32.9 pg (25.0-35.0); MCHC 34.4 g/dL (31.0-37.0); MCV 95.6 fL (80.0-100.0); Mean Platelet Volume 9.7; Monocytes # (A) 0.5 k/uL (0-1.0); Monocytes % (A) 4 %; Neutrophils # (A) 10.9 k/uL (1.3-7.7); Neutrophils % (A) 78 %; Platelet Count 145 k/uL (150-450); RBC 4.64 m/uL (4.30-5.90); RDW 12.4 % (11.5-15.5); WBC 14.1 k/uL (3.8-10.6)
[2018-04-09 11:13] LABS: Albumin 4.6 g/dL (3.5-5.0); Bilirubin, Delta 0.4 mg/dL (0.0-0.2); Bilirubin,Unconjugated 0.2 mg/dL (0.0-1.1); Total Bilirubin 0.6 mg/dL (0.2-1.3); Total Protein 7.4 g/dL (6.3-8.2)
[2018-04-10 15:24] LABS: Hepatits C Virus RNA Not detected (Not detected); Hepatits C Virus RNA, Quant <12 IU/mL (<12); LOG HCV IU/mL <1.08 (<1.08)
== END | disposition home or self-care (01) ==
LOC: LABWHC1 10:13
PROVIDERS: ATTEND Physician Assistant
DX: B18.2 Chronic viral hepatitis C (principal)
CPT/HCPCS: 36415; 80076; 85025; 87522

== ENCOUNTER 2018-11-11 20:10 | Observation (INO) | payer OTHER ==
[2018-11-11] MEDS ORDERED: ACETAMINOPHEN TAB 325 MG TAB PO STA (23:12)
[2018-11-11] MEDS ORDERED: ACETAMINOPHEN TAB 500 MG TAB PO STA (23:12)
[2018-11-11] MEDS ORDERED: VANCOMYCIN IV PER PHARMACY 1 EACH MISC MISCELLANE PRN (23:14)
[2018-11-11] MEDS ORDERED: MORPHINE SULFATE 4 MG/ML SYRINGE IVP STA (23:14)
[2018-11-11] MEDS ORDERED: VANCOMYCIN 1,250 MG in SODIUM CHLORIDE 0.9% 250 ML IVPB STA (23:20)
--- NOTE | 2018-11-11 23:50 | ED ---
Skin/Abscess/FB HPI - General Source: patient, RN notes reviewed, old records reviewed Mode of arrival: ambulatory Limitations: no limitations <Leidy Navarro - Last Filed: 11/12/18 01:26> <Bria Mitchell - Last Filed: 11/13/18 21:28> - General Chief complaint: Skin/Abscess/Foreign Body Stated complaint: bacterial infection Time Seen by Provider: 11/11/18 22:43 - History of Present Illness Initial comments: Patient is a 33-year-old male who presents emergency Department after leaving AGAINST MEDICAL ADVICE from [facility] earlier today. Patient reports he was admitted for a perineal abscess. He was scheduled for surgical intervention today. He reports that he was upset at the staff and the rash seemed very rude to him. He states that he left. He reports that he is receiving IV antibiotics since that time. He does not know the surgeon who supposed to see. Patient states he was frustrated seeing a doctor in many hours when he was there as well as multiple people looking at the area of the infection. Patient reports that he has had fevers and chills. He is a nondiabetic. (Leidy Navarro) - Related Data Home Medications Medication Instructions Recorded Confirmed Gabapentin [Neurontin] 600 mg PO TID 11/07/16 11/11/18 lamoTRIgine [LaMICtal] 150 mg PO BID 06/04/17 11/11/18 Albuterol Inhaler [Ventolin Hfa 2 puff INHALATION RT-Q6H PRN 11/11/18 11/11/18 Inhaler] Allergies Allergy/AdvReac Type Severity Reaction Status Date / Time Iodinated Contrast- Oral and Allergy Rash/Hives Unverified 11/12/18 20:03 IV Dye Penicillins Allergy Rash/Hives Verified 11/11/18 22:45 shellfish derived [Shellfish] Allergy throat Verified 11/11/18 22:45 Swelling/rash tomato Allergy Rash/Hives Verified 11/11/18 22:45 Fish Containing Products AdvReac Nausea Verified 11/11/18 22:45 [Fish] Tuna AdvReac Nausea Uncoded 11/11/18 20:54 Review of Systems ROS Other: All systems not noted in ROS Statement are negative. <Leidy Navarro - Last Filed: 11/12/18 01:26> ROS Other: All systems not noted in ROS Statement are negative. <Bria Mitchell Topher - Last Filed: 11/13/18 21:28> ROS Statement: Those systems with pertinent positive or pertinent negative responses have been documented in the HPI. Past Medical History Past Medical History: Asthma, Hypertension, Mitral Valve Prolapse (MVP), Seizure Disorder Additional Past Medical History / Comment(s): Hepatitis C x 2 years no treatment. Seizure disorder, states last seizure was one year ago. MVP dx as a child. States her PCP has taken her off the HTN meds. Liver cancer History of Any Multi-Drug Resistant Organisms: None Reported Past Surgical History: Cholecystectomy, Hernia Repair Additional Past Surgical History / Comment(s): Right inguinal hernia repair 2. Self-inflicted chest wound requiring chest tube and sutures. Past Anesthesia/Blood Transfusion Reactions: No Reported Reaction Past Psychological History: ADD/ADHD, Anxiety, Bipolar, Depression, Panic Disorder, PTSD Smoking Status: Current every day smoker Past Alcohol Use History: None Reported Past Drug Use History: Cocaine, Heroin, Marijuana - Past Family History Father Additional Family Medical History / Comment(s): Father is alive at age 60 with history of bipolar disorder, schizophrenia, opiate abuse, pedophile with time in [facility]. Mother Additional Family Medical History / Comment(s): Mother is alive at age 52 with no major medical problems. Brother(s) Additional Family Medical History / Comment(s): Patient has 2 brothers and they have no contact with him. Sister(s) Additional Family Medical History / Comment(s): He has one sister that has history of opiate abuse and bipolar. Son(s) Additional Family Medical History / Comment(s): Patient has 2 sons and one has history of pituitary cancer, ADHD and bipolar, second son has ADD, one daughter with no major medical problems. <Leidy Navarro - Last Filed: 11/12/18 01:26> General Exam Limitations: no limitations General appearance: alert, in no apparent distress Head exam: Present: atraumatic, normocephalic, normal inspection Eye exam: Present: normal appearance, PERRL, EOMI. Absent: scleral icterus, conjunctival injection, periorbital swelling ENT exam: Present: normal exam, mucous membranes moist Neck exam: Present: normal inspection. Absent: tenderness, meningismus, lymphadenopathy Respiratory exam: Present: normal lung sounds bilaterally. Absent: respiratory distress, wheezes, rales, rhonchi, stridor Cardiovascular Exam: Present: regular rate, normal rhythm, normal heart sounds. Absent: systolic murmur, diastolic murmur, rubs, gallop, clicks GI/Abdominal exam: Present: soft, normal bowel sounds. Absent: distended, tenderness, guarding, rebound, rigid Rectal exam: Present: tenderness (Denies tenderness over the right perianal region. Area of fluctuance concerning for abscess. She also is a small area of fluctuance over the left buttocks near the rectum. Patient has evidence of cellulitis extending into the scrotum. No crepitus noted. No drainage at this time.) Extremities exam: Present: normal inspection, full ROM, normal capillary refill. Absent: tenderness, pedal edema, joint swelling, calf tenderness Back exam: Present: normal inspection Neurological exam: Present: alert, oriented X3, CN II-XII intact Psychiatric exam: Present: normal affect, normal mood Skin exam: Present: warm, dry, intact, normal color. Absent: rash <Leidy Navarro - Last Filed: 11/12/18 01:26> <Bria Mitchell - Last Filed: 11/13/18 21:28> - General Exam Comments Initial Comments: 33-year-old male. Alert and oriented. (Leidy Navarro) Course <Leidy Navarro - Last Filed: 11/12/18 01:26> <Bria Mitchell - Last Filed: 11/13/18 21:28> Vital Signs 11/11/18 11/12/18 11/12/18 20:50 00:24 01:23 Temperature 98.7 F 98.3 F Pulse Rate 111 H 84 70 Pulse Rate [ Pulse Oximetery ] Respiratory 20 18 19 Rate Blood Pressure 135/72 117/84 122/80 Blood Pressure [Right Arm] O2 Sat by Pulse 95 97 97 Oximetry 11/12/18 11/12/18 11/12/18 06:59 08:12 13:12 Temperature 98.3 F 97.3 F L 97.7 F Pulse Rate 76 Pulse Rate [ 65 63 Pulse Oximetery ] Respiratory 16 16 12 Rate Blood Pressure 124/76 Blood Pressure 123/86 127/87 [Right Arm] O2 Sat by Pulse 97 97 97 Oximetry 11/12/18 13:36 Temperature 98.9 F Pulse Rate Pulse Rate [ 68 Pulse Oximetery ] Respiratory 16 Rate Blood Pressure Blood Pressure 147/86 [Right Arm] O2 Sat by Pulse 98 Oximetry - Reevaluation(s) Reevaluation #1: 11/12/18 01:26 I obtained records from [facility]. Yesterday his white blood cell count was 19,000. He was admitted under Dr. Gallo. Lactic acid was high at that time to 2.2. CT on pelvis showed mild straightening of the left gluteal subcutaneous tissues palpable with cellulitis. There is no evidence of abscess or air containing infection at that time. (Leidy Navarro) Medical Decision Making - Lab Data Result diagrams: 11/12/18 00:10 11/12/18 00:10 - Radiology Data Radiology results: report reviewed <Leidy Navarro - Last Filed: 11/12/18 01:26> - Lab Data Result diagrams: 11/12/18 00:10 11/12/18 00:10 <Bria Mitchell - Last Filed: 11/13/18 21:28> - Medical Decision Making This Patient is a 33-year-old male who left AGAINST MEDICAL ADVICE [facility] noon today. He was admitted for scrotal perianal abscess. Patient does have an area of extensive cellulitis from the right anal area towards the right scrotum. Patient records were obtained. Patient's lab work at this time shows a decrease his white blood cell count receiving antibiotics. We'll put the Patient on Levaquin and vancomycin. We did draw blood cultures. Blood cultures were obtained at [facility]. Due to the area and patient's pain we will admit the Patient for continued IV antibiotic. We'll continue to admit the Patient under Dr. Gallo As well as a consult to urology. Likely ultrasound of the scrotum in the morning. All questions answered and return parameters were discussed. (Leidy Navarro) I personally saw and examined the patient. I reviewed and agree with the mid- level provider findings including all diagnostic interpretations and treatment plans as written unless otherwise stated. I discussed patient care with the admitting physician. Admitted patient to the [facility] hospitalist group would been following him at the outside facility and consult to general surgery for further evaluation. (Bria Mitchell) - Lab Data Lab Results 11/11/18 11/12/18 11/12/18 Range/Units 00:12 00:10 00:10 WBC 13.2 H (3.8-10.6) k/uL RBC 4.00 L (4.30-5.90) m/uL Hgb 12.6 L (13.0-17.5) gm/dL Hct 38.7 L (39.0-53.0) % MCV 96.6 (80.0-100.0) fL MCH 31.5 (25.0-35.0) pg MCHC 32.6 (31.0-37.0) g/dL RDW 12.4 (11.5-15.5) % Plt Count 144 L (150-450) k/uL Neutrophils % 77 % Lymphocytes % 16 % Monocytes % 4 % Eosinophils % 2 % Basophils % 0 % Neutrophils # 10.1 H (1.3-7.7) k/uL Lymphocytes # 2.1 (1.0-4.8) k/uL Monocytes # 0.5 (0-1.0) k/uL Eosinophils # 0.3 (0-0.7) k/uL Basophils # 0.0 (0-0.2) k/uL PT (9.0-12.0) sec INR (<1.2) APTT (22.0-30.0) sec Sodium 137 (137-145) mmol/L Potassium 3.9 (3.5-5.1) mmol/L Chloride 107 (98-107) mmol/L Carbon Dioxide 25 (22-30) mmol/L Anion Gap 5 mmol/L BUN 15 (9-20) mg/dL Creatinine 0.72 (0.66-1.25) mg/dL Est GFR (CKD-EPI)AfAm >90 (>60 ml/min/1.73 sqM) Est GFR (CKD-EPI)NonAf >90 (>60 ml/min/1.73 sqM) Glucose 106 H (74-99) mg/dL Plasma Lactic Acid Rodger (0.7-2.0) mmol/L Calcium 9.0 (8.4-10.2) mg/dL Total Bilirubin 0.4 (0.2-1.3) mg/dL AST 93 H (17-59) U/L ALT 136 H (21-72) U/L Alkaline Phosphatase 118 (38-126) U/L Total Protein 6.3 (6.3-8.2) g/dL Albumin 3.6 (3.5-5.0) g/dL Urine Color Yellow Urine Appearance Clear (Clear) Urine pH 6.0 (5.0-8.0) Ur Specific [place] 1.025 (1.001-1.035) Urine Protein Trace H (Negative) Urine Glucose (UA) Negative (Negative) Urine Ketones Negative (Negative) Urine Blood Negative (Negative) Urine Nitrite Negative (Negative) Urine Bilirubin Negative (Negative) Urine Urobilinogen 6.0 (<2.0) mg/dL Ur Leukocyte Esterase Negative (Negative) 11/12/18 11/12/18 Range/Units 00:10 00:10 WBC (3.8-10.6) k/uL RBC (4.30-5.90) m/uL Hgb (13.0-17.5) gm/dL Hct (39.0-53.0) % MCV (80.0-100.0) fL MCH (25.0-35.0) pg MCHC (31.0-37.0) g/dL RDW (11.5-15.5) % Plt Count (150-450) k/uL Neutrophils % % Lymphocytes % % Monocytes % % Eosinophils % % Basophils % % Neutrophils # (1.3-7.7) k/uL Lymphocytes # (1.0-4.8) k/uL Monocytes # (0-1.0) k/uL Eosinophils # (0-0.7) k/uL Basophils # (0-0.2) k/uL PT 9.7 (9.0-12.0) sec INR 0.9 (<1.2) APTT 23.2 (22.0-30.0) sec Sodium (137-145) mmol/L Potassium (3.5-5.1) mmol/L Chloride (98-107) mmol/L Carbon Dioxide (22-30) mmol/L Anion Gap mmol/L BUN (9-20) mg/dL Creatinine (0.66-1.25) mg/dL Est GFR (CKD-EPI)AfAm (>60 ml/min/1.73 sqM) Est GFR (CKD-EPI)NonAf (>60 ml/min/1.73 sqM) Glucose (74-99) mg/dL Plasma Lactic Acid Rodger 0.8 (0.7-2.0) mmol/L Calcium (8.4-10.2) mg/dL Total Bilirubin (0.2-1.3) mg/dL AST (17-59) U/L ALT (21-72) U/L Alkaline Phosphatase (38-126) U/L Total Protein (6.3-8.2) g/dL Albumin (3.5-5.0) g/dL Urine Color Urine Appearance (Clear) Urine pH (5.0-8.0) Ur Specific [place] (1.001-1.035) Urine Protein (Negative) Urine Glucose (UA) (Negative) Urine Ketones (Negative) Urine Blood (Negative) Urine Nitrite (Negative) Urine Bilirubin (Negative) Urine Urobilinogen (<2.0) mg/dL Ur Leukocyte Esterase (Negative) - Radiology Data EKG shows normal dermatologic x-ray. Ventricular rate 86 bpm. Pulse 142 ms. QRS duration is 92 ms. QT QTc is 362/[address] elevation or T- wave inversion. (Leidy Navarro) Disposition Is patient prescribed a controlled substance at d/c from ED?: No Time of Disposition: 01:29 <Leidy Navarro - Last Filed: 11/12/18 01:26> <Bria Mitchell - Last Filed: 11/13/18 21:28> Clinical Impression: Perianal abscess, Cellulitis of scrotum Disposition: ADMITTED IP TO THIS HOSP Condition: Stable
[2018-11-12] MEDS: SODIUM CHLORIDE 0.9% 500 ML 500 ML IV SCH ×4 (00:11→02:08)
[2018-11-12 00:31] LABS: Basophils % (A) 0 %; Eosinophils # (A) 0.3 k/uL (0-0.7); Eosinophils % (A) 2 %; HCT 38.7 % (39.0-53.0); HGB 12.6 gm/dL (13.0-17.5); Lymphocytes # (A) 2.1 k/uL (1.0-4.8); Lymphocytes % (A) 16 %; MCH 31.5 pg (25.0-35.0); MCHC 32.6 g/dL (31.0-37.0); MCV 96.6 fL (80.0-100.0); Mean Platelet Volume 9.1; Monocytes # (A) 0.5 k/uL (0-1.0); Monocytes % (A) 4 %; Neutrophils # (A) 10.1 k/uL (1.3-7.7); Neutrophils % (A) 77 %; Platelet Count 144 k/uL (150-450); RDW 12.4 % (11.5-15.5); WBC 13.2 k/uL (3.8-10.6)
[2018-11-12 00:40] LABS: INR 0.9 (<1.2); Partial Thromboplastin Time 23.2 sec (22.0-30.0); Prothrombin Time 9.7 sec (9.0-12.0)
[2018-11-12 00:42] LABS: ALT 136 U/L (21-72); AST 93 U/L (17-59); Albumin 3.6 g/dL (3.5-5.0); Alkaline Phosphatase 118 U/L (38-126); Anion Gap 5 mmol/L; Blood Urea Nitrogen 15 mg/dL (9-20); Carbon Dioxide 25 mmol/L (22-30); Chloride 107 mmol/L (98-107); Glucose 106 mg/dL (74-99); Potassium 3.9 mmol/L (3.5-5.1); Sodium 137 mmol/L (137-145); Total Bilirubin 0.4 mg/dL (0.2-1.3); Total Protein 6.3 g/dL (6.3-8.2)
[2018-11-12] MEDS ORDERED: IBUPROFEN 400 MG TAB PO PRN (01:30)
[2018-11-12] MEDS ORDERED: NALOXONE 0.4 MG/ML 1 ML VIAL IV PRN (01:30)
[2018-11-12] MEDS ORDERED: ONDANSETRON 4 MG/2 ML VIAL IVP PRN (01:30)
[2018-11-12] MEDS ORDERED: LEVOFLOXACIN 750MG-D5W PMX 750 MG in DEXTROSE/WATER 1 150ML.BAG IVPB STA (01:32)
[2018-11-12 01:35] LABS: Appearance,Urine Clear (Clear); Bilirubin,Urine Negative (Negative); Blood,Urine Negative (Negative); Color,Urine Yellow; Glucose,Urine (UA) Negative (Negative); Ketones,Urine Negative (Negative); Leukocyte Esterase,Urine Negative (Negative); Nitrite,Urine Negative (Negative); Protein,Urine Trace (Negative); Specific Gravity,Urine 1.025 (1.001-1.035)
[2018-11-12] MEDS: SODIUM CHLORIDE 0.9% 1,000 ML IV SCH ×3 (03:38→21:43)
[2018-11-12] MEDS: KETOROLAC 30 MG/ML 1 ML VIAL IVP PRN ×3 (03:42→20:43)
--- NOTE | 2018-11-12 07:57 | US ---
EXAMINATION TYPE: US scrotum with doppler. Grayscale and color Doppler Duplex imaging performed of t chirag scrotum. DATE OF EXAM: 11/12/2018 COMPARISON: NONE CLINICAL HISTORY: Abscess. h/o infection x 3 days, fever, swollen right side of perineum EXAM MEASUREMENTS: TESTICLES: Right Testicle: 4.8 x 2.6 x 3.5 cm Left Testicle: 4.9 x 3.4 x 2.6 cm EPIDIDYMIS HEAD: Right Epididymis: 1.0 cm Left Epididymis: 1.3 cm Doppler performed to assess for testicular vascularity; good bilateral color flow and waveforms are s een. There is no evidence of testicular torsion. Presence of hydroceles: no Presence of varicoceles: no *Scanned under right testicle near perineum demonstrating edematous tissue and skin thickening. Phleg monous changes are seen without drainable fluid collection to suggest abscess. *Single calcification seen within left testicle, a benign scrotal corrine. IMPRESSION: 1. Phlegmonous changes, subcutaneous edema, and skin thickening of the right perineum with hyperemia suggesting cellulitis. No focal fluid collection to suggest formed abscess at this time. 2. Bilateral testicles demonstrate symmetric flow and are grossly unremarkable other than a benign le ft scrotal corrine.
[2018-11-12] MEDS: MORPHINE SULFATE 4 MG/ML SYRINGE IV PRN ×2 (08:17→13:21)
[2018-11-12] MEDS: VANCOMYCIN 1,250 MG in SODIUM CHLORIDE 0.9% 250 ML IVPB SCH ×3 (08:18→23:44)
[2018-11-12 08:46] VITALS: BMI 21.1
[2018-11-12] MEDS ORDERED: PANTOPRAZOLE 40 MG/10 ML VIAL IV SCH (09:00)
[2018-11-12 13:37] VITALS: RESP 16
[2018-11-12] MEDS ORDERED: HYDROcodone/APAP 5-325MG 1 EACH TAB PO PRN (14:44)
[2018-11-12] MEDS: HYDROmorphone 1 MG/ML 1 ML SYRINGE IVP PRN ×2 (17:14→21:46)
[2018-11-12] MEDS ORDERED: ALBUTEROL NEBULIZED 2.5 MG/3 ML INHALATION PRN (18:17)
[2018-11-12] MEDS ORDERED: TEMAZEPAM 15 MG CAP PO PRN (18:18)
[2018-11-12] MEDS ORDERED: ACETAMINOPHEN TAB 500 MG TAB PO PRN (18:18)
[2018-11-12] MEDS ORDERED: methylPREDNISolone SOD SUCCI 125 MG/2 ML VIAL IV STA (18:37)
[2018-11-12] MEDS ORDERED: diphenhydrAMINE 50 MG/ML 1 ML VIAL IVP STA (18:37)
[2018-11-12] MEDS ORDERED: FAMOTIDINE 20 MG/2 ML VIAL IV STA (18:37)
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
--- NOTE | 2018-11-12 20:04 | HP ---
HISTORY AND PHYSICAL DATE OF SERVICE: 11/12/2018 CHIEF COMPLAINT: Pain and swelling and rash of the perineal area. HISTORY OF PRESENT ILLNESS: This 33-year-old gentleman with a past medical history of multiple medical problems including asthma, hypertension, history of hepatitis C, history of seizure disorder, history IV drug abuse, history of cholecystectomy, ADHD, anxiety, bipolar depression, panic disorder, not being followed by any primary care physician in the outpatient setting noted to have significant swelling and pain and erythema of the perineal area. The patient apparently went to [facility] and apparently surgical intervention was planned but the patient signed against medical advice. The patient came to [facility] and was admitted for further evaluation and treatment. There is no history of fever, rigors or chills. No history of headache, loss of consciousness or seizures. PAST MEDICAL HISTORY: Asthma, hypertension, mitral valve prolapse, seizure disorder, ADHD, anxiety, bipolar depression, PTSD. MEDICATIONS: Prior to admission include home medications are: 1. Lamictal 150 mg p.o. b.i.d. 2. Neurontin 600 mg t.i.d. 3. Albuterol inhaler 2 puffs q.6h p.r.n. ALLERGIES: PENICILLIN, SHELLFISH, TOMATO, FISH CONTAINING PRODUCTS AND TUNA. FAMILY HISTORY: History of THC, history of smoking. REVIEW OF SYSTEMS: ENT: No diminished hearing , no diminished vision. CARDIOVASCULAR: No angina or palpitations. RESPIRATORY: As mentioned earlier. GI no nausea or vomiting. no dysuria. NERVOUS SYSTEM: No numbness or weakness. ALLERGY/IMMUNOLOGY: No asthma or hayfever. MUSCULOSKELETAL: As mentioned earlier. HEMATOLOGY/ONCOLOGY: No history of anemia. ENDOCRINE: No history of diabetes or hypothyroidism. CONSTITUTIONAL: As mentioned earlier. Dermatology: Negative. Rheumatology: Negative. Psychiatry: As mentioned earlier. PHYSICAL EXAMINATION: GENERAL: The patient is alert and oriented times three. VITAL SIGNS: Pulse 63, blood pressure 127/87, respiration 12, temperature 97.7, pulse ox 97% on room air. HEENT conjunctivae normal. Oral mucosa moist. NECK is no jugular venous distention. No carotid bruit. No lymph node enlargement. CARDIOVASCULAR SYSTEM: S1, S2 muffled. RESPIRATORY SYSTEM: Breath sounds diminished at the bases. A few scattered rhonchi and crackles. ABDOMEN: Soft, nontender. No mass palpable. LEGS: No edema. No swelling. NERVOUS SYSTEM: Higher functions as mentioned earlier. Moves all four extremities. No focal deficits. Lymphatics: No lymph nodes palpable in the neck, axillae or groin. SKIN: No ulcer, no rash, no bleeding. LAB STUDIES: WBC 13.2, hemoglobin 12.6, and AST is 93 and ALT is 136. ASSESSMENT: 1. Acute perineal abscess with possible abscess and cellulitis with severe pain. 2. History of asthma. 3. Hypertension. 4. History of mitral valve prolapse. 5. History of seizure disorder. 6. History of hepatitis C. 7. History of IV drug abuse. 8. History of cholecystectomy. 9. History of attention-deficit/hyperactivity disorder. 10.Anxiety, bipolar depression, panic disorder, PTSD. 11.History of continued ongoing nicotine dependence. RECOMMENDATIONS AND DISCUSSION: In this 33-year-old gentleman who presented with multiple complex medical issues we will monitor the patient closely, continue the current medications, management and symptomatic treatment. Continue broad spectrum IV antibiotics. I would also recommend Infectious Disease and surgical evaluation. CT scan of the pelvis also ordered. Guarded prognosis because of multiple complex medical issues. Patient also recommended to follow up with primary physician in the outpatient setting. See orders for details. MMODL / IJN: [id number] / MTDD
[2018-11-12] MEDS: LORazepam 2 MG/ML INJ IV PRN (20:44)
[2018-11-12] MEDS ORDERED: HEPARIN SODIUM,PORCINE 5,000 UNIT/ML 1 ML VIAL SQ SCH (21:00)
[2018-11-12] MEDS ORDERED: lamoTRIgine 100 MG TAB PO SCH (21:00)
[2018-11-12] MEDS: GABAPENTIN 300 MG CAP PO SCH ×2 (21:41)
[2018-11-13] MEDS: LORazepam 2 MG/ML INJ IV PRN (00:57)
[2018-11-13] MEDS: HYDROmorphone 1 MG/ML 1 ML SYRINGE IVP PRN (01:48)
[2018-11-13 02:02] VITALS: BP 137/79; PULSE 78; TEMP 98.4
[2018-11-13] MEDS ORDERED: VANCOMYCIN TROUGH DUE 1 EACH MISC MISCELLANE ONE (07:00)
--- NOTE | 2018-11-13 08:45 | CT ---
EXAMINATION TYPE: CT pelvis w con DATE OF EXAM: 11/13/2018 COMPARISON: 09/02/2017 HISTORY: Perianal abscess CT DLP: 952.6 mGycm Automated exposure control for dose reduction was used. CONTRAST: Patient injected with 100 mL of Isovue 300. TECHNIQUE: Axial images 5 mm thick sections. Reconstructed images in the coronal and sagittal planes. Images are limited in the peritoneal region. Patient refused additional evaluation and left the faci lity. Imaging is incomplete. Interpretation weight based on the images obtained. FINDINGS: Some mild inflammatory changes in the peritoneal region within the subcutaneous tissues greater on th e right. Discrete abscess is not identified. Phlegmon is not identified. However, note that this coul d extend out of the [id number] and may not be visualized. The perianal region appears normal. Perirectal fat is normal. No perirectal abscess or lymphadenopath y is evident. Small amount of free fluid is within the pelvis which is abnormal in a male. Prostate is within femi l limits. Urinary bladder is decompressed with limited evaluation. Loops of bowel within the pelvis w ithout oral contrast appear unremarkable. The appendix is visualized is normal. Vascular structures w ith contrast appear normal. Distal abdominal aorta and inferior vena cava are normal. The inferior po les of the kidneys appear unremarkable. Subcutaneous tissue of muscular densities appear normal. Mult iple inguinal lymph nodes are present bilaterally. The largest on the right measures 1.1 cm. A secon d lymph node measures 1.0 cm IMPRESSION: 1. LIMITED EXAMINATION. ATTEMPTS TO ACQUIRE ADDITIONAL IMAGING WERE REFUSED BY THE PATIENT. 2. SOME MILD INFLAMMATORY CHANGES IN THE RIGHT MEDIAL ASPECT OF THE PERITONEAL REGION. UNDERLYING ABS CESS OR PHLEGMON IS NOT IDENTIFIED AT THIS TIME. 3. INGUINAL ADENOPATHY. TWO ENLARGED LYMPH NODES ARE PRESENT ON THE RIGHT. 3. IMAGES THROUGH THE VISUALIZED PELVIS APPEAR WITHIN NORMAL LIMITS.
[2018-11-13] MEDS ORDERED: NICOTINE 14MG/24HR PATCH TRANSDERM SCH (09:00)
[2018-11-13] MEDS ORDERED: LEVOFLOXACIN 500 MG TAB PO SCH (09:00)
[2018-11-13] MEDS ORDERED: MULTIVITAMINS, THERA 1 EACH TAB PO SCH (12:00)
--- NOTE | 2018-11-17 07:51 | DS ---
DISCHARGE SUMMARY FINAL DIAGNOSES: 1. Possible acute perineal abscess with cellulitis with severe pain. 2. History of asthma. 3. Hypertension. 4. Multiple medical problems. DISCHARGE DISPOSITION: The patient left the hospital AGAIN MEDICAL ADVICE. HISTORY OF PRESENT ILLNESS: This is 33-year-old gentleman admitted with significant pain and swelling of the perineal abscess cellulitis. Patient, however, left the hospital AGAINST MEDICAL ADVICE before being evaluated and treatment completed. Please refer to the ER notes and consultation notes for other details. Prognosis remained extremely guarded throughout the hospitalization. MMODL / IJN: [id number] /
== END 2018-11-13 03:58 | disposition left against medical advice (07) ==
LOC: EC 20:10 → 4MS4W 11-12 00:55 → INTOOBSV 11-12 00:55 → 4SSUR 11-12 13:05 → UNDODISIN 11-13 03:58
PROVIDERS: ADMIT Hospitalist; ATTEND Hospitalist
DX: L03.315 Cellulitis of perineum (principal); N49.2 Inflammatory disorders of scrotum; B19.20 Unspecified viral hepatitis C without hepatic coma; I10 Essential (primary) hypertension; I34.1 Nonrheumatic mitral (valve) prolapse; J45.909 Unspecified asthma, uncomplicated; G40.909 Epilepsy, unspecified, not intractable, without status epilepticus; F90.9 Attention-deficit hyperactivity disorder, unspecified type; F43.10 Post-traumatic stress disorder, unspecified; F31.9 Bipolar disorder, unspecified; F41.9 Anxiety disorder, unspecified; F41.0 Panic disorder [episodic paroxysmal anxiety]; F11.11 Opioid abuse, in remission; F17.210 Nicotine dependence, cigarettes, uncomplicated; Z79.899 Other long term (current) drug therapy; Z91.041 Radiographic dye allergy status; Z88.0 Allergy status to penicillin; Z91.013 Allergy to seafood; Z91.018 Allergy to other foods; Z85.05 Personal history of malignant neoplasm of liver; Z91.5 Personal history of self-harm; Z90.49 Acquired absence of other specified parts of digestive tract; Z81.8 Family history of other mental and behavioral disorders; Z81.3 Family history of other psychoactive substance abuse and dependence; Z80.8 Family history of malignant neoplasm of other organs or systems; Z53.21 Procedure and treatment not carried out due to patient leaving prior to being seen by health care provider
CPT/HCPCS: 96376 ×3; 96361 ×2; 96366 ×3; 96375 ×2; 96365; 99285; 36415; 93005; 80053; 83605; 85025; 85610; 85730; 81003; 87040; 87070; 87086; 87205; 87075; 87077; 87186; 93975; 76870; 72193; G0378 ×2; J3370; J2060 ×2; J2270; J1200; J2930; J1885; J1170 ×2; J1956; C9113; Q9967; 96367

== ENCOUNTER 2019-01-17 23:10 | Emergency (ER) | payer OTHER ==
[2019-01-17 23:30] VITALS: BP 140/89; PULSE 106; RESP 19; TEMP 99.1
[2019-01-18 01:50] LABS: Appearance,Urine Clear (Clear); Bilirubin,Urine Negative (Negative); Blood,Urine Negative (Negative); Color,Urine Yellow; Glucose,Urine (UA) Negative (Negative); Ketones,Urine Negative (Negative); Leukocyte Esterase,Urine Negative (Negative); Nitrite,Urine Negative (Negative); PH, Urine 6.5 (5.0-8.0); Protein,Urine Negative (Negative); Specific Gravity,Urine 1.022 (1.001-1.035)
[2019-01-18] MEDS ORDERED: SODIUM CHLORIDE 0.9% 1,000 ML IV STA (01:53)
[2019-01-18] MEDS ORDERED: CEPHALEXIN 500 MG CAP PO STA (01:54)
[2019-01-18] MEDS ORDERED: SULFAMETHOX-TMP 800-160MG 1 EACH TAB PO STA (01:54)
--- NOTE | 2019-01-18 01:56 | ED ---
General Adult HPI - General Chief complaint: Skin/Abscess/Foreign Body Stated complaint: Painful Wound/Fever Recent Dx MRSA Time Seen by Provider: 01/18/19 00:56 Source: patient Mode of arrival: ambulatory Limitations: no limitations - History of Present Illness Initial comments: Dictation was produced using [employer] dictation software. please excuse any grammatical, word or spelling errors. Chief Complaint: 33-year-old male past medical history of cocaine, heroin, marijuana abuse, mitral valve prolapse, asthma, hypertension, Crohn's disease presents with right gluteal pain. History of Present Illness: 33-year-old male. He is concerned he has MRSA. Patient has had multiple skin infections in the past. Patient's history of illicit drug abuse. Patient localizes the pain to his right gluteal region. States is recurrent for 4 days. Denies any constitutional symptoms. The ROS documented in this emergency department record has been reviewed and confirmed by me. Those systems with pertinent positive or negative responses have been documented in the HPI. All other systems are other negative and/or noncontributory. PHYSICAL EXAM: General Impression: Alert and oriented x3, not in acute distress HEENT: Normocephalic atraumatic, extra-ocular movements intact, pupils equal and reactive to light bilaterally, mucous membranes moist. Cardiovascular: Heart regular rate and rhythm, S1&S2 audible, no murmurs, rubs or gallops Chest: Lungs clear to auscultation bilaterally, no rhonchi, no wheeze, no rales Abdomen: Bowel sounds present, abdomen soft, non-tender, non-distended, no organomegaly Musculoskeletal: Pulses present and equal in all extremities, no peripheral edema Motor: Power 5/5 bilaterally, no focal deficits noted Neurological: CN II-XII grossly intact, no focal motor or sensory deficits noted Skin: 3 x 3 cm area of erythema with singular comedome Psych: Normal affect and mood ED course: 33-year-old male presents with multiple comorbidities presents with chief complaint of glue pain. As upon arrival shows heart rate of 106, rest of vital signs within acceptable limits. Plan care bedside ultrasound was performed showing no subcutaneous abscess. Clinical presentation consistent with folliculitis with cellulitic surrounding changes.Patient requested kidney evaluation. Basic metabolic panel is unremarkable. Urinalysis is negative. Patient given 1 dose of Bactrim and Keflex here in emergency department. Patient also given 1 tablet of [place] for analgesia. Patient be discharged. He is given prescription for Bactrim, Keflex and [place]. Told to follow up with primary care physician upon discharge. Clinical presentation consistent with skin folliculitis of the glute. Patient understandable agreeable to disposition. - Related Data Home Medications Medication Instructions Recorded Confirmed Gabapentin [Neurontin] 600 mg PO TID 11/07/16 11/11/18 lamoTRIgine [LaMICtal] 150 mg PO BID 06/04/17 11/11/18 Albuterol Inhaler [Ventolin Hfa 2 puff INHALATION RT-Q6H PRN 11/11/18 11/11/18 Inhaler] Previous Rx's Medication Instructions Recorded Cephalexin [Keflex] 500 mg PO Q6HR 5 Days #20 cap 01/18/19 HYDROcodone/APAP 5-325MG [[place] 1 tab PO Q6HR PRN 3 Days #6 tab 01/18/19 5-325] Sulfamethox-Tmp 800-160Mg [Bactrim 1 tab PO Q12HR 5 Days #10 tab 01/18/19 DS 800-160 mg] Allergies Allergy/AdvReac Type Severity Reaction Status Date / Time Iodinated Contrast- Oral and Allergy Rash/Hives Verified 01/17/19 23:30 IV Dye Penicillins Allergy Rash/Hives Verified 01/17/19 23:30 shellfish derived [Shellfish] Allergy throat Verified 01/17/19 23:30 Swelling/rash tomato Allergy Rash/Hives Verified 01/17/19 23:30 Fish Containing Products AdvReac Nausea Verified 01/17/19 23:30 [Fish] Tuna AdvReac Nausea Uncoded 01/17/19 23:30 Review of Systems ROS Statement: Those systems with pertinent positive or pertinent negative responses have been documented in the HPI. ROS Other: All systems not noted in ROS Statement are negative. Past Medical History Past Medical History: Asthma, Hypertension, Mitral Valve Prolapse (MVP), Seizure Disorder Additional Past Medical History / Comment(s): Hepatitis C, received treatment, Seizure disorder, states last seizure 12/15/14. MVP dx as a child. Hx of IV drug abuse, denies any drug use for 4 years., History of Any Multi-Drug Resistant Organisms: MRSA Date of last positivie culture/infection: 11/12/18 MDRO Source:: BUTTOCK Past Surgical History: Cholecystectomy, Hernia Repair Additional Past Surgical History / Comment(s): Right inguinal hernia repair 2. Self-inflicted chest wound requiring chest tube and sutures. Past Anesthesia/Blood Transfusion Reactions: No Reported Reaction Past Psychological History: ADD/ADHD, Anxiety, Bipolar, Depression, Panic Disorder, PTSD Smoking Status: Current every day smoker Past Alcohol Use History: None Reported Past Drug Use History: Cocaine, Heroin, Marijuana - Past Family History Father Additional Family Medical History / Comment(s): Father is alive at age 60 with history of bipolar disorder, schizophrenia, opiate abuse, pedophile with time in penitentiary. Mother Additional Family Medical History / Comment(s): Mother is alive at age 52 with no major medical problems. Brother(s) Additional Family Medical History / Comment(s): Patient has 2 brothers and they have no contact with him. Sister(s) Additional Family Medical History / Comment(s): He has one sister that has history of opiate abuse and bipolar. Son(s) Additional Family Medical History / Comment(s): Patient has 2 sons and one has history of pituitary cancer, ADHD and bipolar, second son has ADD, one daughter with no major medical problems. General Exam Limitations: no limitations Course Vital Signs 01/17/19 23:26 Temperature 99.1 F Pulse Rate 106 H Respiratory 19 Rate Blood Pressure 140/89 O2 Sat by Pulse 96 Oximetry Medical Decision Making - Lab Data Result diagrams: 01/18/19 02:25 Lab Results 01/18/19 01/18/19 Range/Units 00:58 02:25 Sodium 139 (137-145) mmol/L Potassium 4.1 (3.5-5.1) mmol/L Chloride 106 (98-107) mmol/L Carbon Dioxide 25 (22-30) mmol/L Anion Gap 8 mmol/L BUN 19 (9-20) mg/dL Creatinine 0.83 (0.66-1.25) mg/dL Est GFR (CKD-EPI)AfAm >90 (>60 ml/min/1.73 sqM) Est GFR (CKD-EPI)NonAf >90 (>60 ml/min/1.73 sqM) Glucose 99 (74-99) mg/dL Calcium 9.4 (8.4-10.2) mg/dL Urine Color Yellow Urine Appearance Clear (Clear) Urine pH 6.5 (5.0-8.0) Ur Specific [place] 1.022 (1.001-1.035) Urine Protein Negative (Negative) Urine Glucose (UA) Negative (Negative) Urine Ketones Negative (Negative) Urine Blood Negative (Negative) Urine Nitrite Negative (Negative) Urine Bilirubin Negative (Negative) Urine Urobilinogen 2.0 (<2.0) mg/dL Ur Leukocyte Esterase Negative (Negative) Disposition Clinical Impression: Folliculitis Disposition: HOME SELF-CARE Condition: Good Instructions (If sedation given, give patient instructions): Folliculitis (ED) Prescriptions: Sulfamethox-Tmp 800-160Mg [Bactrim DS 800-160 mg] 1 tab PO Q12HR 5 Days #10 tab Cephalexin [Keflex] 500 mg PO Q6HR 5 Days #20 cap HYDROcodone/APAP 5-325MG [[place] 5-325] 1 tab PO Q6HR PRN 3 Days #6 tab PRN Reason: Severe Pain Is patient prescribed a controlled substance at d/c from ED?: No Referrals: [facility] [Primary Care Provider] - 1-2 days Time of Disposition: 03:05
[2019-01-18] MEDS ORDERED: HYDROcodone/APAP 5-325MG 1 EACH TAB PO STA (02:27)
[2019-01-18 02:55] LABS: Anion Gap 8 mmol/L; Blood Urea Nitrogen 19 mg/dL (9-20); Calcium 9.4 mg/dL (8.4-10.2); Carbon Dioxide 25 mmol/L (22-30); Chloride 106 mmol/L (98-107); Glucose 99 mg/dL (74-99); Potassium 4.1 mmol/L (3.5-5.1); Sodium 139 mmol/L (137-145)
== END 2019-01-18 03:33 | disposition home or self-care (01) ==
LOC: EC 23:10
DX: L73.9 Follicular disorder, unspecified (principal); J45.909 Unspecified asthma, uncomplicated; G40.909 Epilepsy, unspecified, not intractable, without status epilepticus; F31.9 Bipolar disorder, unspecified; F17.200 Nicotine dependence, unspecified, uncomplicated; Z88.0 Allergy status to penicillin; Z91.013 Allergy to seafood; Z91.018 Allergy to other foods; Z91.041 Radiographic dye allergy status; Z79.899 Other long term (current) drug therapy; Z86.14 Personal history of Methicillin resistant Staphylococcus aureus infection; Z87.2 Personal history of diseases of the skin and subcutaneous tissue; Z72.89 Other problems related to lifestyle
CPT/HCPCS: 36415; 80048; 81003; 96360; 99284

== ENCOUNTER 2019-12-02 17:34 | Emergency (ER) | payer MEDICARE, OTHER ==
[2019-12-02 18:06] VITALS: TEMP 98.2
[2019-12-02] MEDS ORDERED: LORazepam 1 MG TAB PO STA (18:10)
[2019-12-02] MEDS ORDERED: NICOTINE 21MG/24HR PATCH TRANSDERM STA (18:10)
--- NOTE | 2019-12-02 18:11 | ED ---
General Adult HPI - General Source: patient, police, RN notes reviewed, old records reviewed Mode of arrival: ambulatory Limitations: no limitations <Miles Alvarez - Last Filed: 12/02/19 20:26> <Severino Herrera - Last Filed: 12/03/19 05:39> - General Chief complaint: Psychiatric Symptoms Stated complaint: Petition Time Seen by Provider: 12/02/19 17:50 - History of Present Illness Initial comments: 34 -year-old male presenting for psychiatric evaluation. Patient brought in by local police. He has been petitioned for psychiatric evaluation. Patient states he was lifting a box and there was glass adhered to it and cut his left wrist and chest. He denies suicidal or homicidal ideation. He is quite ag itated and aggressive with staff. No physical complaints. (Miles Alvarez) - Related Data Home Medications Medication Instructions Recorded Confirmed Gabapentin [Neurontin] 600 mg PO TID 11/07/16 11/11/18 lamoTRIgine [LaMICtal] 150 mg PO BID 06/04/17 11/11/18 Albuterol Inhaler [Ventolin Hfa 2 puff INHALATION RT-Q6H PRN 11/11/18 11/11/18 Inhaler] Previous Rx's Medication Instructions Recorded Cephalexin [Keflex] 500 mg PO Q6HR 5 Days #20 cap 01/18/19 HYDROcodone/APAP 5-325MG [[place] 1 tab PO Q6HR PRN 3 Days #6 tab 01/18/19 5-325] Sulfamethox-Tmp 800-160Mg [Bactrim 1 tab PO Q12HR 5 Days #10 tab 01/18/19 DS 800-160 mg] Allergies Allergy/AdvReac Type Severity Reaction Status Date / Time Iodinated Contrast Media Allergy Rash/Hives Verified 12/02/19 17:55 [Iodinated Contrast- Oral and IV Dye] Penicillins Allergy Rash/Hives Verified 12/02/19 17:55 shellfish derived [Shellfish] Allergy throat Verified 12/02/19 17:55 Swelling/rash tomato Allergy Rash/Hives Verified 12/02/19 17:55 Fish Containing Products AdvReac Nausea Verified 12/02/19 17:55 [Fish] opiates Allergy Unknown Uncoded 12/02/19 17:55 Tuna AdvReac Nausea Uncoded 12/02/19 17:55 Review of Systems ROS Other: All systems not noted in ROS Statement are negative. <Miles Alvarez - Last Filed: 12/02/19 20:26> ROS Other: All systems not noted in ROS Statement are negative. <Severino Herrera - Last Filed: 12/03/19 05:39> ROS Statement: Those systems with pertinent positive or pertinent negative responses have been documented in the HPI. Past Medical History Past Medical History: Asthma, Hypertension, Mitral Valve Prolapse (MVP), Seizure Disorder Additional Past Medical History / Comment(s): Hepatitis C, received treatment, Seizure disorder, states last seizure 12/15/14. MVP dx as a child. Hx of IV drug abuse, denies any drug use for 4 years., History of Any Multi-Drug Resistant Organisms: MRSA Date of last positivie culture/infection: 11/12/18 MDRO Source:: BUTTOCK Past Surgical History: Cholecystectomy, Hernia Repair Additional Past Surgical History / Comment(s): Right inguinal hernia repair 2. Self-inflicted chest wound requiring chest tube and sutures. Past Anesthesia/Blood Transfusion Reactions: No Reported Reaction Past Psychological History: ADD/ADHD, Anxiety, Bipolar, Depression, Panic Disorder, PTSD Smoking Status: Current every day smoker Past Alcohol Use History: None Reported Past Drug Use History: Cocaine, Heroin, Marijuana - Past Family History Father Additional Family Medical History / Comment(s): Father is alive at age 60 with history of bipolar disorder, schizophrenia, opiate abuse, pedophile with time in penitentiary. Mother Additional Family Medical History / Comment(s): Mother is alive at age 52 with no major medical problems. Brother(s) Additional Family Medical History / Comment(s): Patient has 2 brothers and they have no contact with him. Sister(s) Additional Family Medical History / Comment(s): He has one sister that has history of opiate abuse and bipolar. Son(s) Additional Family Medical History / Comment(s): Patient has 2 sons and one has history of pituitary cancer, ADHD and bipolar, second son has ADD, one daughter with no major medical problems. <Miles Alvarez Reggie - Last Filed: 12/02/19 20:26> General Exam Limitations: no limitations General appearance: alert, in no apparent distress Head exam: Present: atraumatic, normocephalic Eye exam: Present: normal appearance, PERRL ENT exam: Present: normal exam Neck exam: Present: normal inspection. Absent: tenderness, meningismus Respiratory exam: Present: normal lung sounds bilaterally. Absent: respiratory distress, wheezes Cardiovascular Exam: Present: regular rate, normal rhythm GI/Abdominal exam: Present: soft. Absent: distended, tenderness, guarding Extremities exam: Present: other (left wrist 2 superficial lacerations, no active hemorrhage) Neurological exam: Present: alert, oriented X3 Psychiatric exam: Present: agitated, anxious. Absent: homicidal ideation, suicidal ideation Skin exam: Present: warm, dry, other (Superficial laceration to the right upper chest, and left wrist) <Miles Alvarez - Last Filed: 12/02/19 20:26> Course <Miles Alvarez - Last Filed: 12/02/19 20:26> Vital Signs 12/02/19 12/02/19 12/02/19 17:55 20:45 23:05 Temperature 98.2 F Pulse Rate 89 106 H 75 Respiratory 20 17 18 Rate Blood Pressure 153/89 132/73 107/55 O2 Sat by Pulse 99 94 L 97 Oximetry - Reevaluation(s) Reevaluation #1: 12/02/19 18:17 Patient will be sober at 10 PM. Care is signed out at [address] Herrera awaiting sobriety and EPS evaluation (Miles Alvarez) Procedures - Restraint - Face to Face Restraint Occurrence 1 Patient's Immediate Situation: Endangers self safety, Endangers others' safety, Endangers staff safety, Violent behavior Patient's Reaction to the Intervention: Uncooperative, Angry, Hostile, Belligerent, Aggressive Patient's Medical & Behavioral Condition: Follows directions, Anxious, Agitated Face to Face Eval of Restraint Date: 12/02/19 Face to Face Eval of Restraint Time: 19:31 <Miles Alvarez - Last Filed: 12/02/19 20:26> Medical Decision Making <Severino Herrera - Last Filed: 12/03/19 05:39> - Medical Decision Making On sobriety, the patient is reevaluated by EPS. He is now contrite and is bryan for safety. He will return should there be any change in his condition. (Severino Herrera) Disposition <Miles Alvarez - Last Filed: 12/02/19 20:26> Is patient prescribed a controlled substance at d/c from ED?: No <Severino Herrera - Last Filed: 12/03/19 05:39> Clinical Impression: Alcohol intoxication Disposition: HOME SELF-CARE Condition: Good Instructions (If sedation given, give patient instructions): Alcohol Intoxication (ED) Referrals: [facility] [Primary Care Provider] - 1-2 days
[2019-12-02] MEDS ORDERED: LORazepam 2 MG/ML INJ IM STA (19:21)
[2019-12-02] MEDS ORDERED: diphenhydrAMINE 50 MG/ML 1 ML VIAL IM STA (19:29)
[2019-12-02] MEDS ORDERED: ZIPRASIDONE 20 MG VIAL IM STA (19:50)
[2019-12-02 23:08] VITALS: BP 107/55; PULSE 75; RESP 18
== END 2019-12-03 05:55 | disposition home or self-care (01) ==
LOC: EC 17:34
DX: F10.129 Alcohol abuse with intoxication, unspecified (principal); S21.111A Laceration without foreign body of right front wall of thorax without penetration into thoracic cavity, initial encounter; S61.512A Laceration without foreign body of left wrist, initial encounter; R45.1 Restlessness and agitation; Z81.8 Family history of other mental and behavioral disorders; J45.909 Unspecified asthma, uncomplicated; F31.9 Bipolar disorder, unspecified; F41.9 Anxiety disorder, unspecified; F17.200 Nicotine dependence, unspecified, uncomplicated; Z88.0 Allergy status to penicillin; Z88.5 Allergy status to narcotic agent; Z91.013 Allergy to seafood; Z91.018 Allergy to other foods; Z91.041 Radiographic dye allergy status; Z79.899 Other long term (current) drug therapy; Z86.14 Personal history of Methicillin resistant Staphylococcus aureus infection; Z98.890 Other specified postprocedural states; W19.XXXA Unspecified fall, initial encounter; W25.XXXA Contact with sharp glass, initial encounter
CPT/HCPCS: 82075; 99285; 96372 ×3; S4990; J2060; J1200; J3486